=== PATIENT | male | born 1980 | race Caucasian/White ===

== ENCOUNTER 2016-08-01 22:33 | Emergency (ER) | payer OTHER ==
[2016-08-01 22:39] VITALS: TEMP 98.3
[2016-08-01] MEDS ORDERED: SODIUM CHLORIDE 0.9% 500 ML IV STA (23:36)
[2016-08-01] MEDS ORDERED: ONDANSETRON 4 MG/2 ML VIAL IVP STA (23:36)
[2016-08-01] MEDS ORDERED: SODIUM CHLORIDE 0.9% 1,000 ML IV STA (23:36)
[2016-08-01] MEDS ORDERED: MORPHINE SULFATE 4 MG/ML SYRINGE IV STA (23:36)
[2016-08-01] MEDS ORDERED: KETOROLAC 30 MG/ML 1 ML VIAL IVP STA (23:36)
[2016-08-01 23:52] LABS: Basophils # (A) 0.1 k/uL (0-0.2); Basophils % (A) 1 %; CH 31.6; Eosinophils # (A) 0.5 k/uL (0-0.7); Eosinophils % (A) 4 %; HCT 45.7 % (39.0-53.0); HDW 2.57; HGB 15.5 gm/dL (13.0-17.5); Luc # (Auto) 0.16; Luc % (Auto) 2; Lymphocytes # (A) 2.7 k/uL (1.0-4.8); Lymphocytes % (A) 25 %; MCH 30.7 pg (25.0-35.0); MCHC 33.9 g/dL (31.0-37.0); MCV 90.6 fL (80.0-100.0); Mean Platelet Volume 8.4; Monocytes # (A) 0.6 k/uL (0-1.0); Monocytes % (A) 6 %; Neutrophils # (A) 6.7 k/uL (1.3-7.7); Neutrophils % (A) 63 %; RBC 5.04 m/uL (4.30-5.90); RDW 13.2 % (11.5-15.5); WBC 10.7 k/uL (3.8-10.6)
--- NOTE | 2016-08-01 23:55 | ED ---
General Adult HPI - General Chief complaint: Abdominal Pain Stated complaint: abd pain Time Seen by Provider: 08/01/16 23:21 Source: patient, RN notes reviewed, old records reviewed Mode of arrival: ambulatory Limitations: no limitations - History of Present Illness Initial comments: This is a 35-year-old male here for evaluation. This patient is reevaluation of the pain, severe left-sided flank pain radiating to groin. No history of similar symptoms. Patient has no specific medical history no history of surgical history: No nausea vomiting. No diarrhea. No fevers. No real down pain no anorexia. No sick contacts or travel history. Patient denies blood in his urine. No difficulty with urination - Related Data Home Medications Medication Instructions Recorded Confirmed No Known Home Medications [No 08/01/16 08/01/16 Known Home Medications] Allergies Allergy/AdvReac Type Severity Reaction Status Date / Time No Known Allergies Allergy Verified 08/01/16 23:41 Review of Systems ROS Statement: Those systems with pertinent positive or pertinent negative responses have been documented in the HPI. ROS Other: All systems not noted in ROS Statement are negative. Past Medical History Additional Past Medical History / Comment(s): TBI History of Any Multi-Drug Resistant Organisms: None Reported Additional Past Surgical History / Comment(s): PERFERATED ULCER Past Psychological History: Anxiety, Depression Additional Psychological History / Comment(s): Patient states he was diagnosed with schizophrenia Smoking Status: Current every day smoker Past Alcohol Use History: None Reported Additional Past Alcohol Use History / Comment(s): Patient is a smoker one pack per day since he was 12 years of age. He denies any street drug use although drug screen was positive for opiates and marijuana. He denies any alcohol use. He states he is single and lives with his girlfriend. He does not have any children. Past Drug Use History: Marijuana - Past Family History Father Additional Family Medical History / Comment(s): Father from suicide at age 50 with history of gout and CVA. Mother Additional Family Medical History / Comment(s): Mother is alive and has been diagnosed with some type of cancer. Brother(s) Additional Family Medical History / Comment(s): Patient has 3 brothers and one has drug addiction problems. Sister(s) Additional Family Medical History / Comment(s): He has 3 sisters with no major medical problems. General Exam Limitations: no limitations General appearance: alert, in no apparent distress, anxious Head exam: Present: atraumatic, normocephalic, normal inspection Eye exam: Present: normal appearance, PERRL, EOMI. Absent: scleral icterus, conjunctival injection, periorbital swelling ENT exam: Present: normal exam, mucous membranes moist Neck exam: Present: normal inspection. Absent: tenderness, meningismus, lymphadenopathy Respiratory exam: Present: normal lung sounds bilaterally. Absent: respiratory distress, wheezes, rales, rhonchi, stridor Cardiovascular Exam: Present: regular rate, normal rhythm, normal heart sounds. Absent: systolic murmur, diastolic murmur, rubs, gallop, clicks GI/Abdominal exam: Present: soft, normal bowel sounds. Absent: distended, tenderness, guarding, rebound, rigid Extremities exam: Present: normal inspection, full ROM, normal capillary refill. Absent: tenderness, pedal edema, joint swelling, calf tenderness Back exam: Present: normal inspection Neurological exam: Present: alert, oriented X3, CN II-XII intact Psychiatric exam: Present: normal affect, normal mood Skin exam: Present: warm, dry, intact, normal color. Absent: rash Course Vital Signs 08/01/16 22:37 Temperature 98.3 F Pulse Rate 86 Respiratory 20 Rate Blood Pressure 124/83 O2 Sat by Pulse 98 Oximetry - Reevaluation(s) Reevaluation #1: 08/02/16 00:52 At this time patient's pain appears to be improved Medical Decision Making - Medical Decision Making 35 male here for evaluation of down pain. Patient has positive diverticulitis on CAT scan, uncomplicated diverticulitis. Patient was given follow-up for GI for future colonoscopy, treated with antiemetics, pain control and appropriate and antibiotics - Lab Data Result diagrams: 08/01/16 23:30 08/01/16 23:30 Lab Results 08/01/16 08/01/16 08/01/16 Range/Units 23:30 23:30 23:30 WBC 10.7 H (3.8-10.6) k/uL RBC 5.04 (4.30-5.90) m/uL Hgb 15.5 (13.0-17.5) gm/dL Hct 45.7 (39.0-53.0) % MCV 90.6 (80.0-100.0) fL MCH 30.7 (25.0-35.0) pg MCHC 33.9 (31.0-37.0) g/dL RDW 13.2 (11.5-15.5) % Plt Count 249 (150-450) k/uL Neutrophils % 63 % Lymphocytes % 25 % Monocytes % 6 % Eosinophils % 4 % Basophils % 1 % Neutrophils # 6.7 (1.3-7.7) k/uL Lymphocytes # 2.7 (1.0-4.8) k/uL Monocytes # 0.6 (0-1.0) k/uL Eosinophils # 0.5 (0-0.7) k/uL Basophils # 0.1 (0-0.2) k/uL Sodium 142 (137-145) mmol/L Potassium 3.9 (3.5-5.1) mmol/L Chloride 106 (98-107) mmol/L Carbon Dioxide 22 (22-30) mmol/L Anion Gap 14 mmol/L BUN 11 (9-20) mg/dL Creatinine 0.70 (0.66-1.25) mg/dL Est GFR (MDRD) Af Amer >60 (>60 ml/min/1.73 sqM) Est GFR (MDRD) Non-Af >60 (>60 ml/min/1.73 sqM) Glucose 133 H (74-99) mg/dL Calcium 9.4 (8.4-10.2) mg/dL Total Bilirubin 0.5 (0.2-1.3) mg/dL AST 22 (17-59) U/L ALT 35 (21-72) U/L Alkaline Phosphatase 65 (38-126) U/L Total Protein 7.2 (6.3-8.2) g/dL Albumin 4.4 (3.5-5.0) g/dL Amylase 59 (30-110) U/L Lipase 172 (23-300) U/L Urine Color Yellow Urine Appearance Clear (Clear) Urine pH 5.5 (5.0-8.0) Ur Specific [place] 1.023 (1.001-1.035) Urine Protein Trace H (Negative) Urine Glucose (UA) Negative (Negative) Urine Ketones Negative (Negative) Urine Blood Negative (Negative) Urine Nitrate Negative (Negative) Urine Bilirubin Negative (Negative) Urine Urobilinogen <2.0 (<2.0) mg/dL Ur Leukocyte Esterase Negative (Negative) - Radiology Data Radiology results: report reviewed (Computed tomography scan abdomen and pelvis is positive for diverticulitis), image reviewed Disposition Clinical Impression: Abdominal pain, Diverticulitis Disposition: HOME SELF-CARE Condition: Good Instructions: Diverticulitis (ED), Diverticulitis Diet (ED)
[2016-08-02 00:01] LABS: Appearance,Urine Clear (Clear); Bilirubin,Urine Negative (Negative); Glucose,Urine (UA) Negative (Negative); Ketones,Urine Negative (Negative); Leukocyte Esterase,Urine Negative (Negative); Nitrite,Urine Negative (Negative); PH, Urine 5.5 (5.0-8.0); Protein,Urine Trace (Negative); Specific Gravity,Urine 1.023 (1.001-1.035); UA Billing (MACRO vs. MICRO) CHEM; Urobilinogen,Urine <2.0 mg/dL (<2.0)
[2016-08-02 00:04] LABS: ALT 35 U/L (21-72); AST 22 U/L (17-59); Alkaline Phosphatase 65 U/L (38-126); Amylase 59 U/L (30-110); Anion Gap 14 mmol/L; Blood Urea Nitrogen 11 mg/dL (9-20); Calcium 9.4 mg/dL (8.4-10.2); Carbon Dioxide 22 mmol/L (22-30); Chloride 106 mmol/L (98-107); Glucose 133 mg/dL (74-99); Non-African American GFR(MDRD) >60 (>60 ml/min/1.73 sqM); Potassium 3.9 mmol/L (3.5-5.1); Sodium 142 mmol/L (137-145); Total Bilirubin 0.5 mg/dL (0.2-1.3); Total Protein 7.2 g/dL (6.3-8.2)
--- NOTE | 2016-08-02 01:50 | CT ---
EXAMINATION TYPE: CT abdomen pelvis wo con DATE OF EXAM: 08/02/2016 12:20 AM COMPARISON: 09/24/2010 HISTORY: Left Flank Pain history of ulcer CT DLP: 955 mGycm Automated exposure control for dose reduction was used. TECHNIQUE: Helical acquisition of images was performed from the lung bases through the pelvis. FINDINGS: LUNG BASES: Mild atelectasis and scarring is noted in the right middle lobe of lung and right lower l obe of lung. LIVER/GB: No significant abnormality is appreciated. PANCREAS: No significant abnormality is seen. SPLEEN: No significant abnormality is seen. ADRENALS: No significant abnormality is seen. KIDNEYS: No hydronephrosis is noted bilaterally. There is questionable calcification or tiny calculi in both kidneys. RETROPERITONEAL ADENOPATHY: None visualized REPRODUCTIVE ORGANS: Prostate gland is slightly prominent in size. URINARY BLADDER: Urinary bladder is not well distended and is limited for evaluation. PELVIC ADENOPATHY: None visualized. OSSEOUS STRUCTURES: No significant abnormality is seen. BOWEL: There is suggestion of mild acute diverticulitis changes involving the ascending colon in the axial image 78 and coronal image 37 without significant abscess or free fluid collections at present . Visualized appendix showed no significant inflammation as seen in the axial image 114. There is mild to moderate colonic diverticulosis. There is small hiatal hernia is noted. Moderate souleymane d distention of stomach is noted. Small bowel loops appear grossly unremarkable. Others: Mild atherosclerotic calcification is noted in the abdominal aorta. No significant free fluid collections are noted in the abdomen and pelvis. Small fat-containing umbilical hernia is noted. IMPRESSION: 1. THERE IS SUSPECTED MILD ACUTE DIVERTICULITIS INVOLVING DESCENDING COLON IN THE AXIAL IMAGE 79 AND CORONAL IMAGE 35. No drainable abscess collection is noted. A phone report is given to Dr. Pelaez at the time of the dictation.
[2016-08-02] MEDS ORDERED: HYDROcodone/APAP 5-325MG 1 EACH TAB PO STA (01:59)
[2016-08-02] MEDS ORDERED: CIPROFLOXACIN HCL 500 MG TAB PO STA (01:59)
[2016-08-02] MEDS ORDERED: metroNIDAZOLE 500 MG TAB PO STA (01:59)
[2016-08-02 02:20] VITALS: BP 130/82; PULSE 70; RESP 16
== END 2016-08-02 02:19 | disposition home or self-care (01) ==
LOC: EC 22:33
DX: K57.32 Diverticulitis of large intestine without perforation or abscess without bleeding (principal); R10.9 Unspecified abdominal pain; F17.200 Nicotine dependence, unspecified, uncomplicated
CPT/HCPCS: 99284; 96374; 96375; 36415; 80053; 82150; 83690; 85025; 81003; 87086; 74176; J2270; J2405; J1885

== ENCOUNTER 2017-02-05 19:30 | Emergency (ER) | payer OTHER ==
[2017-02-05 19:47] VITALS: BP 129/73; PULSE 93; RESP 18; TEMP 96.9
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
== END 2017-02-05 20:20 | disposition home or self-care (01) ==
LOC: EC 19:30
DX: G89.29 Other chronic pain (principal); M54.5 Low back pain; F17.200 Nicotine dependence, unspecified, uncomplicated
CPT/HCPCS: 99283

== ENCOUNTER → 2019-06-23 | Outpatient (CLI) | payer BC ==
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
--- NOTE | 2019-06-23 15:14 | NM ---
EXAMINATION TYPE: NM bone scan whole body DATE OF EXAM: 06/23/2019 COMPARISON: CT 06/23/2019. HISTORY: Low back pain, attention L2 Delayed whole-body scanning was performed following the injection of 21 mCi Tc 99m MDP. Images were acquired 3 hours post injection. FINDINGS: There is diffuse increased uptake of radiotracer multiple joint spaces. Correlate for polyarthritis. There is focal increased radiotracer within the L2 vertebral body slightly greater on the left compar ed to the right posterior images. Posttraumatic and metastatic disease could be considered at this le sylvester. This would correlate with the lumbar spine imaging dated 06/23/2019 IMPRESSION: 1. Increased radiotracer accumulation at L2, more focal along the left aspect of L2. Metastatic disea se and posttraumatic changes should be considered. 2. Diffuse polyarticular uptake suggestive for degenerative changes. Correlate for polyarthritis
== END | disposition home or self-care (01) ==
LOC: RADNMMAIN 10:57
PROVIDERS: ATTEND Orthopaedic Surgery Orthopaedic Surgery of the Spine
DX: C41.2 Malignant neoplasm of vertebral column (principal); M84.48XA Pathological fracture, other site, initial encounter for fracture; Z98.890 Other specified postprocedural states
CPT/HCPCS: 72131; 78306; A9503

== ENCOUNTER → 2019-07-02 | Outpatient (CLI) | payer BC ==
[2019-07-02 11:16] LABS: HCT 45.6 % (39.0-53.0); HGB 15.1 gm/dL (13.0-17.5); MCH 30.1 pg (25.0-35.0); MCHC 33.2 g/dL (31.0-37.0); MCV 90.6 fL (80.0-100.0); Mean Platelet Volume 7.3; Platelet Count 293 k/uL (150-450); RBC 5.03 m/uL (4.30-5.90); RDW 13.8 % (11.5-15.5); WBC 11.1 k/uL (3.8-10.6)
[2019-07-02 13:20] LABS: Erythrocyte Sedimentation Rate 13 mm/hr (0-15)
[2019-07-02 18:01] LABS: African American GFR (CKD) 131.3 (60.0-200.0); Albumin 4.5 g/dL (3.80-4.90); Albumin/Globulin Ratio 2.25 (1.60-3.17); Anion Gap 6.4 mmol/L (4.00-12.00); BUN/Creat Ratio 21.25 Ratio (12.00-20.00); C Reactive Protein 1.3 mg/dL (0.0-0.8); Calcium 9.4 mg/dL (8.7-10.3); Carbon Dioxide 28.6 mmol/L (21.6-31.8); Non-African American GFR(CKD) 113.3 (60.0-200.0); Potassium 4.4 mmol/L (3.5-5.5); Total Bilirubin 0.4 mg/dL (0.3-1.2); Total Protein 6.5 g/dL (6.2-8.2)
== END | disposition home or self-care (01) ==
LOC: LABWHC1 10:10
PROVIDERS: ATTEND Orthopaedic Surgery Orthopaedic Surgery of the Spine
DX: M54.5 Low back pain (principal); M47.817 Spondylosis without myelopathy or radiculopathy, lumbosacral region; M47.816 Spondylosis without myelopathy or radiculopathy, lumbar region; M43.16 Spondylolisthesis, lumbar region; F17.218 Nicotine dependence, cigarettes, with other nicotine-induced disorders; M51.36 Other intervertebral disc degeneration, lumbar region
CPT/HCPCS: 36415; 80053; 83520; 85027; 85652; 86140

== ENCOUNTER 2019-07-31 11:08 | Emergency (ER) | payer BC ==
[2019-07-31 12:19] LABS: Basophils # (A) 0.1 k/uL (0-0.2); Basophils % (A) 1 %; Eosinophils # (A) 0.4 k/uL (0-0.7); Eosinophils % (A) 3 %; HCT 44.2 % (39.0-53.0); HGB 14.9 gm/dL (13.0-17.5); Lymphocytes # (A) 3.1 k/uL (1.0-4.8); Lymphocytes % (A) 24 %; MCH 30.2 pg (25.0-35.0); MCHC 33.8 g/dL (31.0-37.0); MCV 89.3 fL (80.0-100.0); Mean Platelet Volume 8.3; Monocytes # (A) 0.7 k/uL (0-1.0); Monocytes % (A) 5 %; Neutrophils # (A) 8.2 k/uL (1.3-7.7); Neutrophils % (A) 65 %; Platelet Count 293 k/uL (150-450); RBC 4.95 m/uL (4.30-5.90); RDW 13.7 % (11.5-15.5); WBC 12.6 k/uL (3.8-10.6)
[2019-07-31 12:47] LABS: ALT 25 U/L (4-49); AST 22 U/L (17-59); African American GFR (CKD) >90 (>60 ml/min/1.73 sqM); Albumin 4.4 g/dL (3.5-5.0); Alkaline Phosphatase 66 U/L (38-126); Anion Gap 10 mmol/L; Blood Urea Nitrogen 12 mg/dL (9-20); Carbon Dioxide 27 mmol/L (22-30); Chloride 103 mmol/L (98-107); Glucose 107 mg/dL (74-99); Non-African American GFR(CKD) >90 (>60 ml/min/1.73 sqM); Potassium 4.1 mmol/L (3.5-5.1); Sodium 140 mmol/L (137-145); Total Bilirubin 0.4 mg/dL (0.2-1.3); Total Protein 7.4 g/dL (6.3-8.2)
[2019-07-31 13:38] VITALS: TEMP 98.4
[2019-07-31 14:32] VITALS: BP 114/80; PULSE 68; RESP 18
--- NOTE | 2019-07-31 14:56 | ED ---
General Adult HPI - General Chief complaint: Headache Stated complaint: Body aches Time Seen by Provider: 07/31/19 11:25 Source: patient, RN notes reviewed, old records reviewed Mode of arrival: ambulatory Limitations: no limitations - History of Present Illness Initial comments: 38-year-old male patient presents to ED for chief complaint of generalized ma laise ongoing for approximately one year. Denies any acute onset of new symptoms. Patient reports that he has also had chronic lower back pain. Reports he was seen by Dr. 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 At that time the patient was referred to [facility] for additional surgical referral as an anterior approach was needed. Patient reportedly had lapse of insurance was unable to follow up. Patient reports that he is presenting today in order to jump start his follow-up for this lumbar issue as well as have his blood drawn to ensure that no abnormalities. Also reports waxing and waning headaches which are mild in nature denies red flag symptoms. Systemic: Pt denies rash. Pt denies weakness, night sweats, weight loss. Neuro: Pt denies headache, visual disturbances, syncope or pre-syncope. HEENT: Pt denies ocular discharge or irritation, otalgia, rhinorrhea, pharyngitis or notable lymphadenopathy. Cardiopulmonary: Pt denies chest pain, SOB, heart palpitations, dyspnea on exertion. Abdominal/GI: Pt denies abdominal pain, n/v/d. : Pt denies dysuria, burning w/ urination, frequency/urgency. Denies new onset urinary or bowel incontinence. MSK: Pt denies myalgia, loss of strength or function in extremities. Neuro: Pt denies new onset weakness, paresthesias. - Related Data Home Medications Medication Instructions Recorded Confirmed Ibuprofen 200 mg PO ONCE PRN 02/05/17 02/05/17 Previous Rx's Medication Instructions Recorded Cyclobenzaprine [Flexeril] 10 mg PO TID PRN #15 tab 02/05/17 Hydrocodone/Acetaminophen [[place] 1 tab PO Q6HR PRN #15 tab 02/05/17 5-325] methylPREDNISolone [Medrol Dose 4 mg PO DIRECTED #1 pack 02/05/17 Pack] Allergies Allergy/AdvReac Type Severity Reaction Status Date / Time No Known Allergies Allergy Verified 02/05/17 19:54 Review of Systems ROS Statement: Those systems with pertinent positive or pertinent negative responses have been documented in the HPI. ROS Other: All systems not noted in ROS Statement are negative. 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 Mother Additional Family Medical History / Comment(s): Mother is alive and has been diagnosed with some type of cancer. Brother(s) Additional Family Medical History / Comment(s): Patient has 3 brothers and one has drug addiction problems. Sister(s) Additional Family Medical History / Comment(s): He has 3 sisters with no major m edical problems. General Exam - General Exam Comments Initial Comments: Constitutional: NAD, AOX3, Pt has pleasant affect. HEENT: NC/AT, trachea midline, neck supple, no lymphadenopathy. Posterior pharynx non erythematous, without exudates. External ears appear normal, without discharge. Mucous membranes moist. Eyes PERRLA, EOM intact. There is no scleral icterus. No pallor noted. Cardiopulmonary: RRR, no murmurs, rubs or gallops, no JVD noted. Lungs CTAB in anterior and posterior [place]. No peripheral edema. Abdominal exam: Abdomen soft and non-distended. Abdomen non-tender to palpation in all 4 quadrants. Bowel sounds active in LLQ. No hepatosplenomegaly. No ecchymosis Neuro: CN II-XII intact. No nuchal rigidity. No raccon eyes, no lawton sign, no hemotympanum. No cervical spinal tenderness. NIH 0. MSK: Lumbar spine region mildly tender to palpation. 5/5 strength psoas quadrants muscles. Ambulatory without difficulty, heel toe walking intact. No posterior calf tenderness bilaterally, homans sign negative bilaterally. Posterior tibialis and radial pulse +2 bilaterally. Sensation intact in upper and lower extremities. Full active ROM in upper and lower extremities, 5/5 stregnth. Limitations: no limitations Course Vital Signs 07/31/19 07/31/19 07/31/19 11:10 12:37 13:00 Temperature 98.1 F 98.1 F 98.4 F Pulse Rate 89 61 63 Respiratory 19 15 17 Rate Blood Pressure 117/74 106/72 110/71 O2 Sat by Pulse 98 99 97 Oximetry 07/31/19 14:00 Temperature Pulse Rate 68 Respiratory 18 Rate Blood Pressure 114/80 O2 Sat by Pulse 94 L Oximetry Medical Decision Making - Medical Decision Making 38-year-old male patient presents to ED for chief complaint of wishing to reestablish follow-up for back issues, chronic malaise. Waxing and waning headaches. Patient will signs are stable, afebrile. Physical exam displayed mild tenderness to palpation lumbar spine region. Laboratory investigations revealed a mild leukocytosis, however overall unimpressive. Lumbar spine CT on 06/23 was reviewed which displayed cortical disruption of the right posterior vertebral body, suspecting possible osteomyelitis or discitis. A bone scan of nuchal medicine was discussed which displayed increased radiotracer examination at L2 polyarticular uptake to suggest developed polyarthritis. This case was discussed extensively with Dr. Moreno as well as Mayda YEAGER for Dr. Coburn. She stated that it is believed by Dr. Coburn that this was not infectious in nature. Reports the plan was for outpatient follow-up with orthopedics. Patient was given information provided to me by [facility] office. Patient was additionally given a [facility] referral for outpatient follow-up. Patient states that he is happy with this and this information was the objective of his presentation today. Will return to ER if condition worsens. Case discussed with Dr. Moreno. - Lab Data Result diagrams: 07/31/19 12:07 07/31/19 12:07 Lab Results 07/31/19 07/31/19 07/31/19 Range/Units 11:35 12:07 12:07 WBC 12.6 H (3.8-10.6) k/uL RBC 4.95 (4.30-5.90) m/uL Hgb 14.9 (13.0-17.5) gm/dL Hct 44.2 (39.0-53.0) % MCV 89.3 (80.0-100.0) fL MCH 30.2 (25.0-35.0) pg MCHC 33.8 (31.0-37.0) g/dL RDW 13.7 (11.5-15.5) % Plt Count 293 (150-450) k/uL Neutrophils % 65 % Lymphocytes % 24 % Monocytes % 5 % Eosinophils % 3 % Basophils % 1 % Neutrophils # 8.2 H (1.3-7.7) k/uL Lymphocytes # 3.1 (1.0-4.8) k/uL Monocytes # 0.7 (0-1.0) k/uL Eosinophils # 0.4 (0-0.7) k/uL Basophils # 0.1 (0-0.2) k/uL Sodium 140 (137-145) mmol/L Potassium 4.1 (3.5-5.1) mmol/L Chloride 103 (98-107) mmol/L Carbon Dioxide 27 (22-30) mmol/L Anion Gap 10 mmol/L BUN 12 (9-20) mg/dL Creatinine 0.70 (0.66-1.25) mg/dL Est GFR (CKD-EPI)AfAm >90 (>60 ml/min/1.73 sqM) Est GFR (CKD-EPI)NonAf >90 (>60 ml/min/1.73 sqM) Glucose 107 H (74-99) mg/dL Calcium 10.0 (8.4-10.2) mg/dL Total Bilirubin 0.4 (0.2-1.3) mg/dL AST 22 (17-59) U/L ALT 25 (4-49) U/L Alkaline Phosphatase 66 (38-126) U/L Total Protein 7.4 (6.3-8.2) g/dL Albumin 4.4 (3.5-5.0) g/dL Influenza Type A RNA Not Detected (Not Detectd) Influenza Type B (PCR) Not Detected (Not Detectd) Disposition Clinical Impression: Low back pain, Headache Disposition: HOME SELF-CARE Condition: Stable Instructions (If sedation given, give patient instructions): Acute Headache (ED), Acute Low Back Pain (ED) Additional Instructions: Follow-up with [facility] orthopedic surgeon the phone number to call is [phone]. He'll be contacted by [facility] office note for further information. I will also provide their office information again. Also follow up with hematology for evaluation of possible malignancy. Follow-up with primary care provider tomorrow. Return to ER if condition worsens in any way. Is patient prescribed a controlled substance at d/c from ED?: No Referrals: Master Burleson DO [Primary Care Provider] - 1-2 days Kika Coburn DO [Doctor of Osteopathic Medicine] - 1-2 days Alexis Guerra MD [STAFF PHYSICIAN] - 1-2 days
== END 2019-07-31 15:06 | disposition home or self-care (01) ==
LOC: EC 11:08
DX: R51 Headache (principal); M54.5 Low back pain; G89.29 Other chronic pain; D72.829 Elevated white blood cell count, unspecified; F17.200 Nicotine dependence, unspecified, uncomplicated
CPT/HCPCS: 36415; 80053; 85025; 87502; 99284

== ENCOUNTER 2019-08-11 07:59 | Day surgery (SDC) | payer BC ==
[2019-08-06 12:29] VITALS: BMI 24.3
[~2019-08-11 07:59] MED LIST: LACTATED RINGERS 1,000 ML IV SCH; LIDOCAINE 1% 20 ML VIAL (10MG/ML) FOR IV START INTRADERMA PRN
[2019-08-11 08:44] VITALS: TEMP 98.2
[2019-08-11] MEDS ORDERED: PROPOFOL 10 MG/ML 20 ML VIAL IV ONE (08:51)
[2019-08-11] MEDS ORDERED: LIDOCAINE 1% INJ 10MG/ML (20 ML MDV) ONE (08:51)
[2019-08-11] MEDS ORDERED: MIDAZOLAM 2 MG/2 ML VIAL ONE (08:51)
[2019-08-11] MEDS ORDERED: fentaNYL (PF) 50 MCG/ML 2 ML AMP ONE (08:51)
--- NOTE | 2019-08-11 09:34 | P.PCN ---
Date of Procedure: 08/11/19 Description of Procedure: Brief history: Patient is a pleasant scheduled for an elective upper endoscopy as well as colonoscopy as a part of evaluation of GERD and change in bowel habits. The patient reports frequent reflux not on medical management for his heartburn. He also reports occasional loose stool of unknown etiology. Prior colonoscopy performed for GI bleeding with findings of hemorrhoids, hyperpigmentation and a spastic colon. No family history of colon cancer. Procedure performed: Esophagogastroduodenoscopy with biopsy Colonoscopy with biopsy Estimated blood loss: Minimal. Preoperative diagnosis: GERD, change in bowel habits Anesthesia: MAC Procedure: After informed consent was obtained from the patient was brought into the endoscopy unit and IV sedation was administered by anesthesia under continuous monitoring. Initially upper endoscopy was done. The Olympus GF 190 video endoscope was inserted into the mouth and esophagus intubated without any difficulty and was gradually advanced into the stomach and duodenum and carefully examined. The bulb and second part of the duodenum appeared normal, with biopsies taken to rule out celiac sprue. The scope was then withdrawn into the stomach adequately insufflated with air and upon careful examination the antrum and body, cardia and fundus appeared normal, except for diffuse punctate erythema in the antrum and body suggestive of mild gastritis biopsies of the antrum and body taken to rule out Helicobacter pylori. The scope was then withdrawn into the esophagus. The GE junction was located at 38 cm to the incisors. It appeared somewhat irregular with no erythema erosions or ulcerations, with biopsies taken to rule out Torres's esophagus. Rest of the esophagus appeared normal. Patient tolerated the procedure well. At this time the patient continued to remain sedation. Initial digital rectal e xamination was normal. Olympus CF 190 video colonoscope was then inserted into the rectum and gradually advanced to the cecum without any difficulty. Careful examination was performed as the scope was gradually being withdrawn. The prep was excellent. The cecum, ascending colon, transverse colon, descending colon, sigmoid colon and rectum appeared normal, with biopsies of the right and left co huan taken due to altered bowel function. The terminal ileum was intubated and appeared normal with biopsies taken. Retroflexion was performed in the rectum and no lesions were noted, low-grade internal hemorrhoids noted. Patient tolerated the procedure well. Impression: 1. Mild gastritis antrum and body, biopsied. Biopsies of the duodenum and GE junction. 2. Low-grade internal hemorrhoids. Normal-appearing colon from rectum to cecum and normal-appearing terminal ileum with random biopsies taken of the right colon, left colon and terminal ileum in the setting of altered bowel function. Recommendations: Findings of this examination were discussed with the patient as well as his girlfriend. Okay to resume diet. Okay to resume medications. Await pathology from biopsies. Follow up in gastroenterology clinic as previously scheduled. Repeat colonoscopy for screening at age 50 unless signs or symptoms which warrant further evaluation develop.
[2019-08-11 09:38] VITALS: RESP 16
[2019-08-11 10:17] VITALS: BP 118/78; PULSE 51
== END 2019-08-11 10:19 | disposition home or self-care (01) ==
LOC: ORWHC2ENDO 07:59
PROVIDERS: ATTEND Internal Medicine
DX: K29.50 Unspecified chronic gastritis without bleeding (principal); K21.9 Gastro-esophageal reflux disease without esophagitis; R19.4 Change in bowel habit; K64.8 Other hemorrhoids; F17.210 Nicotine dependence, cigarettes, uncomplicated; Z90.89 Acquired absence of other organs; Z98.890 Other specified postprocedural states
CPT/HCPCS: 88305; 45380; 43239; J2250; J2001; J3010; J2704

== ENCOUNTER 2024-12-09 11:56 | Emergency (ER) | payer BC, OTHER ==
[2024-12-09 12:24] VITALS: TEMP 98.5
--- NOTE | 2024-12-09 13:06 | ED ---
General Adult HPI - General Chief complaint: Psychiatric Symptoms Stated complaint: Mental health eval Time Seen by Provider: 12/09/24 12:20 Source: patient, RN notes reviewed, old records reviewed Mode of arrival: ambulatory Limitations: no limitations - History of Present Illness Initial comments: This is a 44-year-old male who presents to the emergency department he states he is here because the animal doctor wanted him to come here. Patient states he is not suicidal homicidal. Patient does not feel as though he needs to be here. Patient denies wanting to hurt himself or anyone else. Patient denies being more depressed than normal. Patient denies any anxiety. Patient denies any new physical complaints. - Related Data Home Medications Medication Instructions Recorded Confirmed Desmopressin Acetate [Ddavp] 0.05 mg PO BID 12/09/24 12/09/24 Famotidine [Pepcid] 40 mg PO DAILY 12/09/24 12/09/24 traMADol HCL 50 mg PO DAILY PRN 12/09/24 12/09/24 Allergies Allergy/AdvReac Type Severity Reaction Status Date / Time ceftriaxone [From Rocephin] Allergy Rash/Hives Verified 12/09/24 14:41 Review of Systems ROS Statement: Those systems with pertinent positive or pertinent negative responses have been documented in the HPI. ROS Other: All systems not noted in ROS Statement are negative. 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 Mother Additional Family Medical History / Comment(s): Mother is alive and has been diagnosed with some type of cancer. Brother(s) Additional Family Medical History / Comment(s): Patient has 3 brothers and one has drug addiction problems. Sister(s) Additional Family Medical History / Comment(s): He has 3 sisters with no major medical problems. General Exam - General Exam Comments Initial Comments: GENERAL: Patient is well-developed and well-nourished. Patient is nontoxic and well- hydrated and is in no acute distress. ENT: Neck is soft and supple. No significant lymphadenopathy is noted. Oropharynx is clear. Moist mucous membranes. Neck has full range of motion without eliciting any pain. EYES: The sclera were anicteric and conjunctiva were pink and moist. Extraocular movements were intact and pupils were equal round and reactive to light. Eyelids were unremarkable. PULMONARY: Unlabored respirations. Good breath sounds bilaterally. No audible rales rhonchi or wheezing was noted. CARDIOVASCULAR: There is a regular rate and rhythm without any murmurs gallops or rubs. ABDOMEN: Soft and nontender with normal bowel sounds. SKIN: Skin is clear with no lesions or rashes and otherwise unremarkable. NEUROLOGIC: Patient is alert and oriented x3. Cranial nerves II through XII are grossly intact. Motor and sensory are also intact. Normal speech, volume and content. Symmetrical smile. MUSCULOSKELETAL: Normal extremities with adequate strength and full range of motion. LYMPHATICS: No significant lymphadenopathy is noted PSYCHIATRIC: Normal psychiatric evaluation. Denies suicidal homicidal ideations. Patient denies depression or anxiety. Limitations: no limitations Course Vital Signs 12/09/24 12:18 Temperature 98.5 F Pulse Rate 74 Respiratory 20 Rate Blood Pressure 119/73 O2 Sat by Pulse 96 Oximetry Medical Decision Making - Medical Decision Making Was pt. sent in by a medical professional or institution (, PA, AUTOMOBILE SALESMAN, urgent care, hospital, or half-way...) When possible be specific @ -No Did you speak to anyone other than the patient for history (EMS, parent, family, police, friend...)? What history was obtained from this source @ -No Did you review nursing and triage notes (agree or disagree)? Why? @ -I reviewed and agree with nursing and triage notes Were old charts reviewed (outside hosp., previous admission, EMS record, old EKG, old radiological studies, urgent care reports/EKG's, half-way records)? Report findings @ -No old charts were reviewed Differential Diagnosis? @ -Differential Mental Health Depression, anxiety, bipolar, psychosis, schizophrenia, borderline personality, situational depression, adjustment disorder, behavioral disorder, brain tumor, malingering, substance abuse, encephalopathy, medication reaction, dementia, hypothyroidism, degenerative neurologic disorder, lupus.... This is not meant to be all-inclusive list EKG interpreted by me (3pts min.). @ -As above X-rays interpreted by me (1pt min.). @ -None done CT interpreted by me (1pt min.). @ -None done U/S interpreted by me (1pt. min.). @ -None done What testing was considered but not performed or refused? (CT, X-rays, U/S, labs)? Why? @ -None What meds were considered but not given or refused? Why? @ -None Did you discuss the management of the patient with other professionals (professionals i.e. , PA, AUTOMOBILE SALESMAN, lab, RT, psych nurse, social science manager, senior program planner, teacher, philanthropy officer, insurance case manager)? Give summary @ -Spoke with the EPS nurse Was smoking cessation discussed for >3mins.? @ -No Was critical care preformed (if so, how long)? @ -No Were there social determinants of health that impacted care today? How? (Homelessness, low income, unemployed, alcoholism, drug addiction, transportation, low edu. Level, literacy, decrease access to med. care, fdc, rehab)? @ -No Was there de-escalation of care discussed even if they declined (Discuss DNR or withdrawal of care, Hospice)? DNR status @ -No What co-morbidities impacted this encounter? (DM, HTN, Smoking, COPD, CAD, Cancer, CVA, ARF, Chemo, Hep., AIDS, mental health diagnosis, sleep apnea, morbid obesity)? @ -None Was patient admitted / discharged? Hospital course, mention meds given and route, prescriptions, significant lab abnormalities, going to OR and other pe rtinent info. @ -EPS evaluated the patient and determined that the patient could be discharged home with a safety plan patient was in agreement patient was discharged home with a safety plan Undiagnosed new problem with uncertain prognosis? @ -No Drug Therapy requiring intensive monitoring for toxicity (Heparin, Nitro, Insulin, Cardizem)? @ -No Were any procedures done? @ -No Diagnosis/symptom? @ -Psychiatric evaluation Acute, or Chronic, or Acute on Chronic? @ -Acute Uncomplicated (without systemic symptoms) or Complicated (systemic symptoms)? @ -Uncomplicated Side effects of treatment? @ -No Exacerbation, Progression, or Severe Exacerbation? @ -No Poses a threat to life or bodily function? How? (Chest pain, [place], VT, pneumonia, PE, COPD, DKA, ARF, appy, cholecystitis, CVA, Diverticulitis, Homicidal, Suicidal, threat to staff... and all critical care pts) @ -No Disposition Clinical Impression: Evaluation by psychiatric service required Disposition: HOME SELF-CARE Condition: Good Is patient prescribed a controlled substance at d/c from ED?: No Referrals: Jesi Cedeno DO [Primary Care Provider] - 1-2 days Time of Disposition: 15:41
[2024-12-09 15:50] VITALS: BP 119/80; PULSE 59; RESP 18
== END 2024-12-09 15:57 | disposition home or self-care (01) ==
LOC: EC 11:56
DX: Z13.30 Encounter for screening examination for mental health and behavioral disorders, unspecified (principal); F17.200 Nicotine dependence, unspecified, uncomplicated; Z88.1 Allergy status to other antibiotic agents
CPT/HCPCS: 82075; 99284